=== PATIENT | male | born 1965 | race Caucasian/White ===

== ENCOUNTER 2022-01-23 13:40 | Emergency (ER) | payer OTHER ==
[2022-01-23 13:53] VITALS: RESP 18; TEMP 98.4
[2022-01-23 15:39] LABS: Anisocytosis Slight; Basophils # (A) 0.1 k/uL (0-0.2); Basophils % (A) 1 %; Eosinophils # (A) 0.3 k/uL (0-0.7); Eosinophils % (A) 4 %; HGB 11.8 gm/dL (13.0-17.5); Lymphocytes # (A) 1.4 k/uL (1.0-4.8); Lymphocytes % (A) 18 %; MCH 30.3 pg (25.0-35.0); MCHC 31.9 g/dL (31.0-37.0); MCV 94.8 fL (80.0-100.0); Mean Platelet Volume 9.7; Monocytes # (A) 0.5 k/uL (0-1.0); Monocytes % (A) 7 %; Neutrophils # (A) 5.1 k/uL (1.3-7.7); Neutrophils % (A) 69 %; Platelet Count 213 k/uL (150-450); RBC 3.91 m/uL (4.30-5.90); RDW 16.5 % (11.5-15.5); WBC 7.4 k/uL (3.8-10.6)
[2022-01-23 16:09] LABS: ALT 14 U/L (4-49); AST 26 U/L (17-59); African American GFR (CKD) >90 (>60 ml/min/1.73 sqM); Albumin 3.6 g/dL (3.5-5.0); Alkaline Phosphatase 83 U/L (38-126); Anion Gap 7 mmol/L; Blood Urea Nitrogen 12 mg/dL (9-20); Calcium 8.9 mg/dL (8.4-10.2); Carbon Dioxide 28 mmol/L (22-30); Chloride 104 mmol/L (98-107); Glucose 96 mg/dL (74-99); Non-African American GFR(CKD) >90 (>60 ml/min/1.73 sqM); Potassium 4.1 mmol/L (3.5-5.1); Sodium 139 mmol/L (137-145); Total Bilirubin 0.5 mg/dL (0.2-1.3); Total Protein 6.6 g/dL (6.3-8.2)
--- NOTE | 2022-01-23 16:24 | ED ---
General Adult HPI - General Chief complaint: Extremity Injury, Lower Stated complaint: Swollen legs Time Seen by Provider: 01/23/22 14:47 Source: patient Mode of arrival: ambulatory Limitations: no limitations - History of Present Illness Initial comments: Patient is a 56-year-old male presenting with chief complaint of bilateral lower extremity swelling. Patient presented to the ER from [facility]. Patient states that he has been present for the last week, last night it got much worse. Patient states that there is some pain in the bilateral knees from arthritis, otherwise no complaints of pain. Patient denies any history of CHF. Patient states he has been compliant with his hypertension medications and he is on blood thinner, Xeralto. No shortness of breath or chest pain. No abdominal pain, nausea, vomiting, diarrhea. No hematochezia, hematemesis, hemoptysis, hematuria. No cough or congestion or sore throat. No fever, chills, rash. - Related Data Home Medications Medication Instructions Recorded Confirmed Acetaminophen [Tylenol 8 Hour] 650 mg PO Q4H PRN 01/23/22 01/23/22 Atorvastatin [Lipitor] 40 mg PO HS 01/23/22 01/23/22 Diltiazem HCl [Diltiazem HCl 24Hr 360 mg PO DAILY 01/23/22 01/23/22 ER] Losartan Potassium 50 mg PO HS 01/23/22 01/23/22 Metoprolol Succinate (ER) [Toprol 300 mg PO DAILY 01/23/22 01/23/22 Xl] Multivitamins, Thera [Multivitamin 1 tab PO DAILY 01/23/22 01/23/22 (formulary)] Rivaroxaban [Xarelto] 20 mg PO W/SUPPER 01/23/22 01/23/22 Thiamine HCl [Vitamin B-1] 100 mg PO DAILY 01/23/22 01/23/22 traZODone HCL [Desyrel] 50 - 150 mg PO HS 01/23/22 01/23/22 Allergies Allergy/AdvReac Type Severity Reaction Status Date / Time No Known Allergies Allergy Verified 01/23/22 16:22 Review of Systems ROS Statement: Those systems with pertinent positive or pertinent negative responses have been documented in the HPI. ROS Other: All systems not noted in ROS Statement are negative. Past Medical History Past Medical History: Atrial Fibrillation, Hypertension History of Any Multi-Drug Resistant Organisms: None Reported Past Surgical History: Orthopedic Surgery Additional Past Surgical History / Comment(s): L knee, L bicep Past Psychological History: Anxiety, Depression Smoking Status: Current every day smoker Past Alcohol Use History: None Reported Past Drug Use History: None Reported General Exam Limitations: no limitations General appearance: alert, in no apparent distress Head exam: Present: atraumatic, normocephalic, normal inspection Eye exam: Present: normal appearance, PERRL, EOMI. Absent: scleral icterus, conjunctival injection, periorbital swelling Neck exam: Present: normal inspection. Absent: tenderness, meningismus, lymphadenopathy Respiratory exam: Present: normal lung sounds bilaterally. Absent: respiratory distress, wheezes, rales, rhonchi, stridor Cardiovascular Exam: Present: regular rate, normal rhythm, normal heart sounds. Absent: systolic murmur, diastolic murmur, rubs, gallop, clicks GI/Abdominal exam: Absent: distended Extremities exam: Present: pedal edema (swelling of the B/L legs, L worse than R). Absent: calf tenderness Neurological exam: Present: alert, oriented X3, CN II-XII intact Psychiatric exam: Present: normal affect, normal mood Skin exam: Present: warm, dry, intact, normal color. Absent: rash Course Vital Signs 01/23/22 01/23/22 01/23/22 13:49 16:03 17:03 Temperature 98.4 F Pulse Rate 51 L 54 L Respiratory 18 18 Rate Blood Pressure 184/90 179/99 161/96 O2 Sat by Pulse 96 98 Oximetry EKG Findings - EKG Comments: EKG Findings:: No previous study to compare this EKG 2. Sinus bradycardia with rate of 51. Prolonged QT interval. EKG was shown to and evaluated by Dr. Kasper. - EKG Results: EKG: interpreted by [facility] EKG shows: bradycardia Medical Decision Making - Medical Decision Making Patient is a 56-year-old male with past medical history of hypertension presenting for a chief complaint of bilateral lower extremity swelling. Symptoms have been present throughout the last week, last night he noticed it had acutely worsened. Patient has no known history of CHF. Patient states he is compliant with his daily blood pressure medications. At presentation he is slightly bradycardic at 54 bpm. On exam there is bilateral 3+ pitting edema of the lower extremities. BNP is elevated at 1280, otherwise lab work is negative. Chest x-ray shows no heart enlargement. Venous Doppler study shows no signs of DVT. EKG is remarkable for bradycardia and QT prolongation. During this encounter patient was given 40 mg of by mouth Lasix due to consistent elevated blood pressure and swelling. This is likely dependent edema. I educated the patient on type fitted stockings, low-sodium diet, and elevation. Follow up with her primary care this week. Report back to ER with any worsening symptoms. I educated the patient on return parameters, alarm symptoms, and answered all questions. Patient conveyed verbal understanding and agreed to the plan. I discussed this case with my attending Dr. Mcdonough - Lab Data Result diagrams: 01/23/22 15:20 01/23/22 15:20 Lab Results 01/23/22 01/23/22 01/23/22 Range/Units 15:20 15:20 15:20 WBC 7.4 (3.8-10.6) k/uL RBC 3.91 L (4.30-5.90) m/uL Hgb 11.8 L (13.0-17.5) gm/dL Hct 37.0 L (39.0-53.0) % MCV 94.8 (80.0-100.0) fL MCH 30.3 (25.0-35.0) pg MCHC 31.9 (31.0-37.0) g/dL RDW 16.5 H (11.5-15.5) % Plt Count 213 (150-450) k/uL MPV 9.7 Neutrophils % 69 % Lymphocytes % 18 % Monocytes % 7 % Eosinophils % 4 % Basophils % 1 % Neutrophils # 5.1 (1.3-7.7) k/uL Lymphocytes # 1.4 (1.0-4.8) k/uL Monocytes # 0.5 (0-1.0) k/uL Eosinophils # 0.3 (0-0.7) k/uL Basophils # 0.1 (0-0.2) k/uL Anisocytosis Slight Sodium 139 (137-145) mmol/L Potassium 4.1 (3.5-5.1) mmol/L Chloride 104 (98-107) mmol/L Carbon Dioxide 28 (22-30) mmol/L Anion Gap 7 mmol/L BUN 12 (9-20) mg/dL Creatinine 0.78 (0.66-1.25) mg/dL Est GFR (CKD-EPI)AfAm >90 (>60 ml/min/1.73 sqM) Est GFR (CKD-EPI)NonAf >90 (>60 ml/min/1.73 sqM) Glucose 96 (74-99) mg/dL Calcium 8.9 (8.4-10.2) mg/dL Total Bilirubin 0.5 (0.2-1.3) mg/dL AST 26 (17-59) U/L ALT 14 (4-49) U/L Alkaline Phosphatase 83 (38-126) U/L Troponin I (0.000-0.034) ng/mL NT-Pro-B Natriuret Pep 1280 pg/mL Total Protein 6.6 (6.3-8.2) g/dL Albumin 3.6 (3.5-5.0) g/dL 01/23/22 Range/Units 15:20 WBC (3.8-10.6) k/uL RBC (4.30-5.90) m/uL Hgb (13.0-17.5) gm/dL Hct (39.0-53.0) % MCV (80.0-100.0) fL MCH (25.0-35.0) pg MCHC (31.0-37.0) g/dL RDW (11.5-15.5) % Plt Count (150-450) k/uL MPV Neutrophils % % Lymphocytes % % Monocytes % % Eosinophils % % Basophils % % Neutrophils # (1.3-7.7) k/uL Lymphocytes # (1.0-4.8) k/uL Monocytes # (0-1.0) k/uL Eosinophils # (0-0.7) k/uL Basophils # (0-0.2) k/uL Anisocytosis Sodium (137-145) mmol/L Potassium (3.5-5.1) mmol/L Chloride (98-107) mmol/L Carbon Dioxide (22-30) mmol/L Anion Gap mmol/L BUN (9-20) mg/dL Creatinine (0.66-1.25) mg/dL Est GFR (CKD-EPI)AfAm (>60 ml/min/1.73 sqM) Est GFR (CKD-EPI)NonAf (>60 ml/min/1.73 sqM) Glucose (74-99) mg/dL Calcium (8.4-10.2) mg/dL Total Bilirubin (0.2-1.3) mg/dL AST (17-59) U/L ALT (4-49) U/L Alkaline Phosphatase (38-126) U/L Troponin I <0.012 (0.000-0.034) ng/mL NT-Pro-B Natriuret Pep pg/mL Total Protein (6.3-8.2) g/dL Albumin (3.5-5.0) g/dL - Radiology Data Radiology results: report reviewed Chest x-ray shows no acute cardiopulmonary process. Heart is of normal size. Venous Doppler study of the bilateral lower extremities shows no evidence of DVT Disposition Clinical Impression: Dependent edema Disposition: HOME SELF-CARE Condition: Good Instructions (If sedation given, give patient instructions): Leg Edema (ED) Additional Instructions: Follow-up with her primary care this week. Report back to the ER with any worsening symptoms. To help with swelling, elevate legs when possible, eat a low-sodium diet, wear compression stockings or tight fitted stockings. Is patient prescribed a controlled substance at d/c from ED?: No Referrals: None,Stated [Primary Care Provider] - 1-2 days Time of Disposition: 17:57
--- NOTE | 2022-01-23 16:30 | US ---
EXAMINATION TYPE: US venous doppler duplex LE BI DATE OF EXAM: 01/23/2022 4:13 PM COMPARISON: NONE CLINICAL HISTORY: new B/L LE swelling. Bilateral leg swelling SIDE PERFORMED: Bilateral TECHNIQUE: The lower extremity deep venous system is examined utilizing real time linear array sonog alireza with graded compression, doppler sonography and color-flow sonography. VESSELS IMAGED: Common Femoral Vein Deep Femoral Vein Greater Saphenous Vein * Femoral Vein Popliteal Vein Small Saphenous Vein * Proximal Calf Veins (* superficial vessels) Right Leg: Appears negative for DVT Left Leg: Appears negative for DVT IMPRESSION: No evidence of deep vein thrombosis in both legs.
[2022-01-23] MEDS ORDERED: FUROSEMIDE 40 MG TAB PO STA (16:33)
[2022-01-23 17:04] VITALS: PULSE 54
--- NOTE | 2022-01-23 17:05 | XR ---
EXAMINATION TYPE: XR chest 2V DATE OF EXAM: 01/23/2022 COMPARISON: NONE HISTORY: Leg edema TECHNIQUE: 2 views FINDINGS: There is no heart failure nor confluent pneumonic infiltrate. Costophrenic angles are clear. Bony tho rax is intact. IMPRESSION: No active cardiopulmonary disease. Heart is top normal in size.
[2022-01-23 18:48] VITALS: BP 157/85
== END 2022-01-23 18:40 | disposition home or self-care (01) ==
LOC: EC 13:40
DX: R60.0 Localized edema (principal); I10 Essential (primary) hypertension; I48.91 Unspecified atrial fibrillation; F32.A Depression, unspecified; F41.9 Anxiety disorder, unspecified; F17.200 Nicotine dependence, unspecified, uncomplicated; Z79.01 Long term (current) use of anticoagulants; Z79.899 Other long term (current) drug therapy
CPT/HCPCS: 36415; 71046; 80053; 83880; 84484; 85025; 93005; 93970; 99284

== ENCOUNTER 2024-12-25 08:28 | Emergency (ER) | payer OTHER ==
[2024-12-25 08:35] VITALS: RESP 18; TEMP 97.5
[2024-12-25] MEDS: OXYMETAZOLINE 0.05% NASL SPRAY 1 SPRAY BOTTLE NASAL STA (08:41)
--- NOTE | 2024-12-25 08:50 | ED ---
ENT HPI - General Chief complaint: ENT Stated complaint: nose bleed Time Seen by Provider: 12/25/24 08:32 Source: EMS, RN notes reviewed, old records reviewed Mode of arrival: EMS Limitations: no limitations - History of Present Illness Initial comments: This is a 59-year-old male to the ER for evaluation of nosebleed. Patient has nosebleed that started yesterday resolved and again this morning. Patient also had significant hypertension this morning before he was able to take his morning blood pressure medications. Patient is on Xarelto and has been for years. He has been taking that medication. Patient had no trauma to the nose no recent illness, patient is at [facility] for alcohol but he is over 2 months clean states that he is not really going through any issues with MD complaint: epistaxis -: hour(s) Location: nose Severity: moderate Severity scale (1-10): 4 Consistency: constant Improves with: none Worsens with: none Context-Epistaxis: warfarin use (Patient is on anticoagulation) Associated Symptoms: other (0) - Related Data Home Medications Medication Instructions Recorded Confirmed Acetaminophen [Tylenol 8 Hour] 650 mg PO Q4H PRN 01/23/22 01/23/22 Atorvastatin [Lipitor] 40 mg PO HS 01/23/22 01/23/22 Losartan Potassium 50 mg PO HS 01/23/22 01/23/22 Metoprolol Succinate (ER) [Toprol 300 mg PO DAILY 01/23/22 01/23/22 Xl] Multivitamins, Thera [Multivitamin 1 tab PO DAILY 01/23/22 01/23/22 (formulary)] Rivaroxaban [Xarelto] 20 mg PO W/SUPPER 01/23/22 01/23/22 Thiamine HCl [Vitamin B-1] 100 mg PO DAILY 01/23/22 01/23/22 dilTIAZem HCL [Diltiazem HCl 24Hr 360 mg PO DAILY 01/23/22 01/23/22 ER] traZODone HCL [Desyrel] 50 - 150 mg PO HS 01/23/22 01/23/22 Allergies Allergy/AdvReac Type Severity Reaction Status Date / Time No Known Allergies Allergy Verified 12/25/24 08:32 Review of Systems ROS Statement: Those systems with pertinent positive or pertinent negative responses have been documented in the HPI. ROS Other: All systems not noted in ROS Statement are negative. Past Medical History Past Medical History: Atrial Fibrillation, Hypertension History of Any Multi-Drug Resistant Organisms: None Reported Past Surgical History: Orthopedic Surgery Additional Past Surgical History / Comment(s): L knee, L bicep Past Psychological History: Anxiety, Depression Smoking Status: Current every day smoker Past Alcohol Use History: Abuse Past Drug Use History: None Reported General Exam General appearance: alert, in no apparent distress Head exam: Present: atraumatic, normocephalic, normal inspection Eye exam: Present: normal appearance, PERRL, EOMI. Absent: scleral icterus, conjunctival injection, periorbital swelling ENT exam: Present: normal exam, mucous membranes moist, other (Right nare epistaxis) Neck exam: Present: normal inspection. Absent: tenderness, meningismus, lymphadenopathy Respiratory exam: Present: normal lung sounds bilaterally. Absent: respiratory distress, wheezes, rales, rhonchi, stridor Cardiovascular Exam: Present: regular rate, normal rhythm, normal heart sounds. Absent: systolic murmur, diastolic murmur, rubs, gallop, clicks GI/Abdominal exam: Present: soft, normal bowel sounds. Absent: distended, tenderness, guarding, rebound, rigid Extremities exam: Present: normal inspection, full ROM, normal capillary refill. Absent: tenderness, pedal edema, joint swelling, calf tenderness Back exam: Present: normal inspection Neurological exam: Present: alert, oriented X3, CN II-XII intact Psychiatric exam: Present: normal affect, normal mood Skin exam: Present: warm, dry, intact, normal color. Absent: rash Course Vital Signs 12/25/24 12/25/24 08:30 10:16 Temperature 97.5 F L Pulse Rate 70 80 Respiratory 18 18 Rate Blood Pressure 132/97 127/93 O2 Sat by Pulse 99 99 Oximetry - Reevaluation(s) Reevaluation #1: 12/25/24 09:20 Medical records reviewed Patient has no prior ER visits to this hospital Reevaluation #2: 12/25/24 09:20 Patient symptoms improved Reevaluation #3: 12/25/24 09:21 Patient appears to have sensation of nosebleed Reevaluation #4: Was pt. sent in by a medical professional or institution (, PA, DOG POUND ATTENDANT, urgent care, hospital, or residential...) When possible be specific @ -no Did you speak to anyone other than the patient for history (EMS, parent, family, police, friend...)? What history was obtained from this source @ -no Did you review nursing and triage notes (agree or disagree)? Why? @ -agree Are old charts reviewed (outside hosp., previous admission, EMS record, old EKG, old radiological studies, urgent care reports/EKG's, residential records)? Report findings @ -yes Differential Diagnosis (chest pain, altered mental status, abdominal pain women, abdominal pain men, vaginal bleeding, weakness, fever, dyspnea, syncope, headache, dizziness, GI bleed, back pain, seizure, CVA, palpatations, mental health, musculoskeletal)? @ -prior EKG interpreted by me (3pts min.). @ -no X-rays interpreted by me (1pt min.). @ -no CT interpreted by me (1pt min.). @ -no U/S interpreted by me (1pt. min.). @ -no What testing was considered but not performed or refused? (CT, X-rays, U/S, labs)? Why? @ -none What meds were considered but not given or refused? Why? @ -none Did you discuss the management of the patient with other professionals (professionals i.e. , PA, DOG POUND ATTENDANT, lab, RT, psych nurse, child protective services social worker, relationship mgr, teacher, human resources officer, disease case manager rn)? Give summary @ -no Was smoking cessation discussed for >3mins.? @ -no Was critical care preformed (if so, how long)? @ -no Were there social determinants of health that impacted care today? How? (Homelessness, low income, unemployed, alcoholism, drug addiction, transportation, low edu. Level, literacy, decrease access to med. care, care home, rehab)? @ -none Was there de-escalation of care discussed even if they declined (Discuss DNR or withdrawal of care, Hospice)? DNR status @ -no What co-morbidities impacted this encounter? (DM, HTN, Smoking, COPD, CAD, Cancer, CVA, ARF, Chemo, Hep., AIDS, mental health diagnosis, sleep apnea, morbid obesity)? @ -none Was patient admitted / discharged? Hospital course, mention meds given and route, prescriptions, significant lab abnormalities, going to OR and other pertinent info. @ - 59 male to ER for evaluation of nosebleed. Patient was having significant hypertension this morning and had a nosebleed yesterday at [facility], nosebleeding was able to be stopped here in the emergency department and patient can be discharged Discharge nosebleed Undiagnosed new problem with uncertain prognosis? @ -no Drug Therapy requiring intensive monitoring for toxicity (Heparin, Nitro, Insulin, Cardizem)? @ -no Were any procedures done? @ -no Diagnosis/symptom? @ - Acute, or Chronic, or Acute on Chronic? @ -Acute Uncomplicated (without systemic symptoms) or Complicated (systemic symptoms)? @ -Complicated Side effects of treatment? @ -no Exacerbation, Progression, or Severe Exacerbation? @ -exacerbation Poses a threat to life or bodily function? How? (Chest pain, USA, MD, pneumonia, PE, COPD, DKA, ARF, appy, cholecystitis, CVA, Diverticulitis, Homicidal, Suicidal, threat to staff... and all critical care pts) @ -no Medical Decision Making - Medical Decision Making 59 male to ER for evaluation of nosebleed. Patient was having significant hypertension this morning and had a nosebleed yesterday at [facility], nosebleeding was able to be stopped here in the emergency department and patient can be discharged Disposition Clinical Impression: Right-sided nosebleed Disposition: HOME SELF-CARE Condition: Good Instructions (If sedation given, give patient instructions): Nosebleed (ED) Is patient prescribed a controlled substance at d/c from ED?: No Referrals: None,Stated [Primary Care Provider] - 1-2 days Time of Disposition: 09:30
[2024-12-25 10:18] VITALS: BP 127/93; PULSE 80
== END 2024-12-25 10:18 | disposition home or self-care (01) ==
LOC: EC 08:28
DX: R04.0 Epistaxis (principal); F17.200 Nicotine dependence, unspecified, uncomplicated; Z79.01 Long term (current) use of anticoagulants
CPT/HCPCS: 99283